=== PATIENT | female | born 1990 | race Caucasian/White ===

== ENCOUNTER 2021-07-13 01:54 | Day surgery (SDC) | payer SELFPAY ==
[2021-07-13] MEDS ORDERED: Ondansetron PF 4 MG/2 ML Vial ONE ×4 (02:31→07:56)
[2021-07-13] MEDS ORDERED: Fentanyl 100 MCG/2 ML VIAL ONE ×6 (02:52→09:39)
[2021-07-13 02:53] LABS: BHCG - Serum POSITIVE (NEGATIVE); Pregs Control Background? CLEAR/WHITE (CLR/WHITE); Pregs Control Bar Appear? YES (CONTROL BAR)
[2021-07-13 02:55] LABS: #Eosinphils 0.1 10x3/uL (0.0-0.5); #Monocytes 0.6 10x3/uL (0.0-1.1); #Neutrophils 5.7 10x3/uL (1.5-8.4); %Basophils 0.1 % (0.0-2.0); %Eosinophils 0.7 % (0.0-6.0); %Lymphocytes 23.6 % (18.0-47.0); %Monocytes 6.6 % (0.0-10.0); %Neutrophils 68.5 % (40.0-75.0); Hemoglobin 12.3 g/dL (12.0-15.5); Mean Corpuscular HGB CONC 32.8 g/dL (32.0-36.0); Mean Corpuscular Hemoglobin 30.7 pg (27.0-33.0); Mean Corpuscular Volume 93.5 fl (81.6-98.3); Mean Platelet Volume 11.2 fl (7.4-10.4); Platelet Count 185 10x3/uL (150-450); RBC Distribution Width 11.7 % (11.5-14.5); Red Blood Cell (RBC) Count 4.01 10x6/uL (3.90-5.03); White Blood Cell (WBC) Count 8.3 10x3/uL (3.5-10.5)
[2021-07-13 03:07] LABS: ALT (SGPT) 11 U/L (8-55); AST (SGOT) 12 U/L (5-34); Albumin 4.1 g/dL (3.5-5.0); Alkaline Phosphatase 45 U/L (40-110); Anion Gap 13 mmol/L (10-20); BUN (Urea Nitrogen) 9 mg/dL (7.0-18.7); Bilirubin, Total 0.2 mg/dL (0.2-1.2); Calc. Creatinine Clearance 0 mL/min (70-130); Calcium 8.9 mg/dL (7.8-10.44); Carbon Dioxide 24 mmol/L (22-29); Chloride 103 mmol/L (98-107); Glucose 107 mg/dL (70-105); Lipase 6 U/L (8-78); Potassium 3.8 mmol/L (3.5-5.1); Protein, Total 7.1 g/dL (6.0-8.3); Sodium 136 mmol/L (136-145)
[2021-07-13] MEDS ORDERED: Morphine 4 MG/ML VIAL ONE ×2 (03:09→03:23)
[2021-07-13] MEDS ORDERED: EPINEPHrine 1 MG/ML AMP ONE (07:32)
[2021-07-13] MEDS ORDERED: Bupivacaine PF 0.5% 30 ML VIAL ONE (07:32)
[2021-07-13 07:39] LABS: Bilirubin Neg (Negative); Blood, Urine Negative (Negative); Clarity Clear (Clear); Glucose, Urine (Dipstick) 50 mg/dL (Negative); Ketone, Urine 5 mg/dL (Negative); Leukocyte Negative (Negative); Nitrite Negative (Negative); Protein, Urine (Dipstick) 30 mg/dl (Neg-Trace); Specific Gravity, Urine 1.025 (1.002-1.036); Urobilinogen Normal mg/dL (Less than 2)
[2021-07-13 07:46] LABS: Bacteria/HPF 1+ HPF (None Seen); RBC/HPF 0-3 HPF (0-3); Squamous Epithelial 0-3 HPF (0-3); WBC/HPF 0-3 HPF (0-3)
[2021-07-13 07:47] LABS: Mucous/LPF 2+ LPF (<2+)
[2021-07-13] MEDS ORDERED: Rocuronium Bromide 10 MG/ML (10ML VIAL) ONE (07:55)
[2021-07-13] MEDS ORDERED: PROPOFOL 20 ML ONE (07:55)
[2021-07-13] MEDS ORDERED: Dexamethasone 4 mg/ml Vial ONE (07:56)
[2021-07-13] MEDS ORDERED: Lidocaine 2% PF 5 ML VIAL ONE (07:56)
[2021-07-13] MEDS ORDERED: Succinylcholine 200 MG/10 ml SYRINGE FS ONE (07:56)
[2021-07-13] MEDS ORDERED: Glycopyrrolate 0.2 MG/ML 5 ML SYRINGE ONE (07:56)
[2021-07-13] MEDS ORDERED: HYDROmorphone 0.5 MG/0.5 ML SYRINGE ONE (08:22)
[2021-07-13 08:24] LABS: SARS-CoV-2 NAA Rapid Test Not Detected (NotDetected)
[2021-07-13] MEDS ORDERED: PHENYLEPHRINE-NS 100 MCG/ML 10 ML SYRINGE ONE (08:41)
[2021-07-13] MEDS ORDERED: Ketorolac Tromethamine 30 MG/ML VIAL ONE (09:40)
[2021-07-13] MEDS ORDERED: Progesterone,Micronized 100 MG CAP PO SCH (10:15)
== END 2021-07-13 13:20 | disposition home or self-care (01) ==
LOC: CSHERS 01:54 → CSHSDC/OP 09:00
PROVIDERS: ATTEND Obstetrics & Gynecology
PROC: 0UT04ZZ Resection of Right Ovary, Percutaneous Endoscopic Approach (ICD-10-PCS; principal; 2021-07-13)
DX: N83.511 Torsion of right ovary and ovarian pedicle (principal); N83.11 Corpus luteum cyst of right ovary
CPT/HCPCS: 36415; 76770; 76815; 76856; 80053; 81003; 81015; 83690; 84702; 84703; 85025; 86850; 86900; 86901; 88305; 96374; 96375; 96376; J0171; J1100; J1170; J1885; J2001; J2270; J2405; J2704; J3010; S0020; U0002

== ENCOUNTER 2021-07-16 16:31 | Emergency (ER) | payer SELFPAY ==
[2021-07-16 17:34] LABS: #Eosinphils 0.1 10x3/uL (0.0-0.5); #Monocytes 0.4 10x3/uL (0.0-1.1); #Neutrophils 6.8 10x3/uL (1.5-8.4); %Basophils 0.1 % (0.0-2.0); %Eosinophils 0.6 % (0.0-6.0); %Monocytes 4.5 % (0.0-10.0); %Neutrophils 73.5 % (40.0-75.0); Hemoglobin 13.1 g/dL (12.0-15.5); Mean Corpuscular HGB CONC 33.5 g/dL (32.0-36.0); Mean Corpuscular Hemoglobin 30.8 pg (27.0-33.0); Mean Corpuscular Volume 91.8 fl (81.6-98.3); Mean Platelet Volume 11.9 fl (7.4-10.4); Platelet Count 160 10x3/uL (150-450); RBC Distribution Width 11.8 % (11.5-14.5); Red Blood Cell (RBC) Count 4.26 10x6/uL (3.90-5.03); White Blood Cell (WBC) Count 9.3 10x3/uL (3.5-10.5)
[2021-07-16 17:45] LABS: INR-International Normal Ratio 0.9; PTT Less than 20.0 sec (22.0-33.0); Prothrombin Time 10.3 sec (9.5-12.1)
[2021-07-16 17:47] LABS: ALT (SGPT) 19 U/L (8-55); AST (SGOT) 17 U/L (5-34); Albumin 4.1 g/dL (3.5-5.0); Alkaline Phosphatase 51 U/L (40-110); Anion Gap 12 mmol/L (10-20); BUN (Urea Nitrogen) 6 mg/dL (7.0-18.7); Bilirubin, Total 0.3 mg/dL (0.2-1.2); Calc. Creatinine Clearance 0 mL/min (70-130); Carbon Dioxide 25 mmol/L (22-29); Chloride 105 mmol/L (98-107); Glucose 94 mg/dL (70-105); Potassium 3.5 mmol/L (3.5-5.1); Protein, Total 7.1 g/dL (6.0-8.3); Sodium 138 mmol/L (136-145)
== END 2021-07-16 19:13 | disposition home or self-care (01) ==
LOC: CSHERS 16:31
DX: O20.9 Hemorrhage in early pregnancy, unspecified (principal); Z3A.09 9 weeks gestation of pregnancy
CPT/HCPCS: 76856; 80053; 84702; 85025; 85610; 85730

== ENCOUNTER 2022-01-31 11:11 | Inpatient (IN) | payer SELFPAY ==
[2022-01-31 11:52] VITALS: BMI 27.4
[2022-01-31] MEDS ORDERED: hydrALAZINE 20 MG/ML VIAL SLOW IVP PRN ×2 (12:11→13:44)
[2022-01-31 13:07] LABS: Creatinine, Urine 21.69 mg/dL (47-110)
[2022-01-31 13:40] LABS: #Monocytes 0.5 10x3/uL (0.0-1.1); #Neutrophils 4.3 10x3/uL (1.5-8.4); %Basophils 0.1 % (0.0-2.0); %Eosinophils 0.6 % (0.0-6.0); %Lymphocytes 28.9 % (18.0-47.0); %Monocytes 6.9 % (0.0-10.0); %Neutrophils 62.9 % (40.0-75.0); Hemoglobin 11.7 g/dL (12.0-15.5); Mean Corpuscular HGB CONC 33.1 g/dL (32.0-36.0); Mean Corpuscular Hemoglobin 29.3 pg (27.0-33.0); Mean Corpuscular Volume 88.5 fl (81.6-98.3); RBC Distribution Width 12.7 % (11.5-14.5); White Blood Cell (WBC) Count 6.9 10x3/uL (3.5-10.5)
[2022-01-31 13:41] LABS: Mean Platelet Volume 13.6 fl (7.4-10.4); Platelet Count 121 10x3/uL (150-450)
[2022-01-31] MEDS ORDERED: Ibuprofen 800 MG TAB PO PRN (13:44)
[2022-01-31] MEDS ORDERED: Promethazine HCl 25 MG/ML VIAL IM PRN (13:44)
[2022-01-31] MEDS ORDERED: Acetaminophen 500 MG TAB PO PRN (13:44)
[2022-01-31] MEDS ORDERED: HYDROcodone/Acetaminophen 5/325 mg Tablet PO PRN ×2 (13:44)
[2022-01-31] MEDS ORDERED: Misoprostol 200 MCG TAB PR PRN (13:44)
[2022-01-31] MEDS ORDERED: Lidocaine 1% (PF) 30 ML VIAL SC PRN (13:44)
[2022-01-31] MEDS ORDERED: Diphenoxylate HCl/Atropine Tablet PO PRN (13:44)
[2022-01-31] MEDS ORDERED: Carboprost 250 MCG/ML AMP IM PRN (13:44)
[2022-01-31] MEDS ORDERED: Ondansetron PF 4 MG/2 ML Vial IVP PRN (13:44)
[2022-01-31] MEDS ORDERED: Butorphanol Tartrate 1 MG/ML VIAL SLOW IVP PRN (13:44)
[2022-01-31] MEDS ORDERED: NS w/ Oxytocin 30 units 500 ML IV SCH (13:45)
[2022-01-31] MEDS ORDERED: Penicillin G Potassium 5 MILL.UNITS in Sodium Chloride 0.9% 100 ML IVPB SCH (13:45)
[2022-01-31 13:54] LABS: AST (SGOT) 17 U/L (5-34); Anion Gap 13 mmol/L (10-20); BUN (Urea Nitrogen) 10 mg/dL (7.0-18.7); Calc. Creatinine Clearance 133 mL/min (70-130); Carbon Dioxide 24 mmol/L (22-29); Chloride 105 mmol/L (98-107); Estimated GFR 117; Glucose 74 mg/dL (70-105); Sodium 138 mmol/L (136-145)
[2022-01-31] MEDS: Misoprostol 100 MCG TAB VAG SCH (15:37)
[2022-01-31 15:56] LABS: Hemoglobin 11.2 g/dL (12.0-15.5); Mean Corpuscular HGB CONC 32.4 g/dL (32.0-36.0); Mean Corpuscular Hemoglobin 29.3 pg (27.0-33.0); Mean Corpuscular Volume 90.6 fl (81.6-98.3); Mean Platelet Volume 13.6 fl (7.4-10.4); Platelet Count 119 10x3/uL (150-450); RBC Distribution Width 12.6 % (11.5-14.5); Red Blood Cell (RBC) Count 3.82 10x6/uL (3.90-5.03); White Blood Cell (WBC) Count 6.7 10x3/uL (3.5-10.5)
[2022-01-31 16:22] LABS: Syphilis Antibody Nonreactive (Nonreactive); Syphilis Antibody Index 0.03 S/CO (<1.00 Non-Reactive)
[2022-01-31 16:22] LABS: Hep B Surf Ag Non-Reactive S/CO (NonReactive)
[2022-01-31] MEDS: Penicillin G 2.5 MILL.units 2.5 MILL.UNITS in Premix Bag 1 BAG IVPB SCH (20:12)
[2022-02-01] MEDS: Penicillin G 2.5 MILL.units 2.5 MILL.UNITS in Premix Bag 1 BAG IVPB SCH ×2 (13:35→21:33)
[2022-02-01] MEDS: NS w/ Oxytocin 30 units 500 ML IV SCH ×2 (18:00→18:55)
[2022-02-01] MEDS ORDERED: Lidocaine 1% (PF) 30 ML VIAL ONE (18:07)
[2022-02-01] MEDS ORDERED: Misoprostol 200 MCG TAB ONE (18:07)
[2022-02-01] MEDS ORDERED: Misoprostol 200 MCG TAB PR SCH (19:00)
[2022-02-01] MEDS ORDERED: NS w/ Oxytocin 30 units 500 ML IV SCH (21:30)
[2022-02-01] MEDS ORDERED: Ondansetron PF 4 MG/2 ML Vial IVP PRN (21:31)
[2022-02-01] MEDS ORDERED: Benzocaine-Menthol 82.5 ML CAN TOP PRN (21:31)
[2022-02-01] MEDS ORDERED: Bisacodyl 10 MG SUPP PR PRN (21:31)
[2022-02-01] MEDS ORDERED: Milk Of Magnesia 30 ML UDCUP PO PRN (21:31)
[2022-02-01] MEDS ORDERED: HYDROcodone/Acetaminophen 5/325 mg Tablet PO PRN ×2 (21:31)
[2022-02-01] MEDS ORDERED: hydrALAZINE 20 MG/ML VIAL SLOW IVP PRN (21:31)
[2022-02-01] MEDS ORDERED: Preparation H Ointment 28 GM TUBE PR PRN (21:31)
[2022-02-01] MEDS ORDERED: Misoprostol 200 MCG TAB VAG PRN (21:31)
[2022-02-01] MEDS ORDERED: Lanolin Ointment 7 GM TUBE TOP PRN (21:31)
[2022-02-01] MEDS: Misoprostol 100 MCG TAB VAG SCH (21:32)
[2022-02-01] MEDS ORDERED: Docusate 100 MG CAP PO SCH (21:45)
[2022-02-01] MEDS: Ibuprofen 800 MG TAB PO SCH (21:45)
[2022-02-02] MEDS ORDERED: Calcium Carbonate 500 MG ChewTAB PO PRN (04:06)
[2022-02-02] MEDS: Witch Hazel-Glycerin 1 EACH JAR TOP PRN (04:10)
[2022-02-02] MEDS: Ibuprofen 800 MG TAB PO SCH ×3 (05:44→21:05)
[2022-02-02] MEDS: Ferrous Sulfate 325 MG TAB PO SCH ×2 (09:03→15:25)
[2022-02-02] MEDS: Prenatal Vitamin 1 TAB PO SCH (09:06)
[2022-02-02] MEDS: Docusate 100 MG CAP PO SCH ×2 (09:06→21:04)
[2022-02-03] MEDS: Ibuprofen 800 MG TAB PO SCH (05:25)
[2022-02-03] MEDS: Witch Hazel-Glycerin 1 EACH JAR TOP PRN (05:28)
[2022-02-03] MEDS: Prenatal Vitamin 1 TAB PO SCH (09:36)
[2022-02-03] MEDS: Docusate 100 MG CAP PO SCH (09:36)
[2022-02-03 12:27] VITALS: BP 138/81; TEMP 98.3
== END 2022-02-03 11:50 | disposition home or self-care (01) | DRG 807 ==
LOC: CSHLD/OP 11:11 → CSHLD 18:31 → CSHPP 02-01 21:15
PROVIDERS: ADMIT Obstetrics & Gynecology; ATTEND Obstetrics & Gynecology
PROC: 3E0P7VZ Introduction of Hormone into Female Reproductive, Via Natural or Artificial Opening (ICD-10-PCS; 2022-01-31)
PROC: 10E0XZZ Delivery of Products of Conception, External Approach (ICD-10-PCS; principal; 2022-02-01)
PROC: 10907ZC Drainage of Amniotic Fluid, Therapeutic from Products of Conception, Via Natural or Artificial Opening (ICD-10-PCS; 2022-02-01)
DX: O14.94 Unspecified pre-eclampsia, complicating childbirth (principal); Z37.0 Single live birth; O99.824 Streptococcus B carrier state complicating childbirth; Z3A.39 39 weeks gestation of pregnancy; O34.03 Maternal care for unspecified congenital malformation of uterus, third trimester; Q51.3 Bicornate uterus; F41.9 Anxiety disorder, unspecified; O70.0 First degree perineal laceration during delivery; O32.6XX0 Maternal care for compound presentation, not applicable or unspecified; O99.344 Other mental disorders complicating childbirth; Z90.89 Acquired absence of other organs; Z90.721 Acquired absence of ovaries, unilateral
CPT/HCPCS: 36415; 36416; 80048; 82570; 84156; 84450; 85025; 86780; 86850; 86900; 86901; 87340; 99285; J2540; J2590; J3490